=== PATIENT | male | born 1980 | race Caucasian/White ===

== ENCOUNTER 2025-09-22 12:36 | Outpatient (REF) | payer MEDICAID, SELFPAY ==
[2025-09-22 14:31] LABS: Alanine Aminotransferase 28 U/L (0-40); Albumin Level 4.3 g/dL (3.5-5.0); Alkaline Phosphatase 73 U/L (39-117); Anion Gap 8 (12-20); Aspartate Amino Transferase 32 U/L (5-37); Blood Urea Nitrogen 14 mg/dL (9-16); Calcium 8.9 mg/dL (8.4-10.2); Carbon Dioxide 27 mmol/L (22-29); Chloride 109 mmol/L (96-108); Cholesterol 171 mg/dL (<200); Estimated Glomerular Filt Rate > 60; HDL Cholesterol 43 mg/dL (>40); Potassium 3.9 mmol/L (3.3-5.1); Sodium 140 mmol/L (135-145); Total Protein 6.9 g/dL (6.5-8.0); Triglycerides 135 mg/dL (<150)
--- OUTSIDE RECORDS SUMMARY | 2025-09-22 14:33 | XMS_ITS | Clinical Summary ---
Author Organization [facility] Address [address] [place] [phone] Phone Care Team Providers Care Slip Cover Operator Name Role Phone Pcp, Unknown Primary Care Provider Unavailabl e Allergies No known active allergies Medications melatonin 3 mg Tab Take by mouth nightly at bedtime as needed. Active Active Problems Problem Noted Date Diagnosed Date Insomnia 04/17/2019 Tobacco abuse 04/17/2019 Immunizations Immunization Administration Dates Next Due DTP 01/23/1987, 5,05/26/1983,1982,1982 Hepatitis B Adult 04/12/1999 MMR 05/09/1994,08/25/1983 Polio - OPV 01/23/1987, 5,05/26/1983,1982,1982 Td (adult) 5 Lf Tetanus Toxo id, PF, Adsorbed 04/15/2019 Td (adult),2 Lf Tetanus Toxo id, PF, Adsorbed 04/28/1997 Family History Medical History Relation Comments Cancer Maternal Aunt Cancer Maternal Uncle Liver disease Maternal Uncle Asthma Sister Relation Status Comments Father Alive Maternal Aunt Maternal Grandfather (Age 80s) Maternal Grandmother (Age 80s) Maternal Uncle (Age 50s) Mother Alive Paternal Grandfather (Age 80s) Paternal Grandmother (Age 80s) Sister Alive Social History Tobacco Use Types Packs/Day Years Used Date Smoking Tobacco: Every Day Cigarettes 0.1 20 Smokeless Tobacco: Never Tobacco Cessation:Ready to Q uit: Yes; Counseling Given: Yes Alcohol Use Standard Drinks/Week Comments Yes 0 (1 standard drink = 0.6 oz pure alcohol) 6 drinks, beer w/a shot or two, once a week Education Answer Date Recorded Are you interested in more education? Not on fanny e 01/20/2023 Are you concerned about learning? Not on file 01/20/2023 No 01/20/2023 No 01/20/2023 Digital Access Answer Date Recorded No 02/18/2023 No 02/18/2023 No 02/18/2023 Reliable internet access at home? Not on file 02/18/2023 Device with a working camera? Not on file Sex and Gender Information Value Date Recorded Sex Assigned at Not on file Legal Sex Male 3:44 PM EDT Gender Identity Not on file Sexual Orientation Not on file Last Filed Vital Signs Vital Sign Reading Time Taken Comments Blood Pressure 110/68 04/15/2019 3:44 PM EDT Pulse 92 04/15/2019 3:44 PM EDT Temperature - - Respiratory Rate 16 04/15/2019 3:44 PM EDT Oxygen Saturation 98% 04/15/2019 3:44 PM EDT Inhaled Oxygen Concentration - - Weight 70.9 kg (156 lb 3.2 oz) 04/15/2019 3:44 P M EDT Height 172.7 cm (5' 7.99 ) 04/15/2019 3:44 PM ED T Body Mass Index 23.76 04/15/2019 3:44 PM EDT Plan of Treatment Health Maintenance Due Date Last Done Comments LIPID PANEL 1982 SMOKING Hx and SMOKELESS TOBACCO SCREENING 1995 HEPATITIS C SCREENING 2000 HIV ONE-TIME SCREENING (18-6 5 YEARS) 2000 PNEUMOCOCCAL VACCINES (0-49 years) (1 of 2 - PCV) 2001 DEPRESSION SCREENING 04/15/2020 04/15/2019 INFLUENZA VACCINE (#1) 2025 COVID-19 VACCINE (3 2024-2 6 season) 2025 06/11/2021, 05/20/2021 Adult Td,Tdap Booster 04/15/2029 04/15/2019 , 04/28/1997 HEPATITIS A VACCINES Aged Out No long er eligible based on patient's age to complete this topic HIB VACCINES Aged Out No longer eligi ble based on patient's age to complete this topic MENINGOCOCCAL VACCINES (ACWY) Aged Out No longer eligible based on patient's age to complete this topic MENINGOCOCCAL VACCINES (B) Aged Out N o longer eligible based on patient's age to complete this topic Medical Devices Not on file Care Teams Slip Cover Operator Relationship Specialty Start Date End Date Pcp, Unknown PCP - General 04/22/22 Additional Source Comments The information contained in this document represents components of the legal health record. It is not the complete legal health record.[facility]
== END 2025-09-22 12:37 | disposition home or self-care (01) ==
LOC: HO.LAB 12:36
PROVIDERS: PCP Physician Assistant; Visit Provider Physician Assistant
DX: F10.29 Alcohol dependence with unspecified alcohol-induced disorder (principal); Z82.49 Family history of ischemic heart disease and other diseases of the circulatory system
CPT/HCPCS: 36415; 80053; 80061